=== PATIENT | female | born 1975 | race Caucasian/White ===

== ENCOUNTER → 2018-01-02 | Outpatient (CLI) | payer OTHER ==
[~2018-01-02] MED LIST: HYDR-971 PO; LIDOCAINE 1% PF 30 ML VIAL. ONE
[2018-01-02 11:01] LABS: CSF PROTEIN 30.4 mg/dL (15.0-45.0)
[2018-01-02 11:34] LABS: CSF CLARITY CLEAR; CSF COLOR COLORLESS; CSF RBC COUNT 29; CSF WBC COUNT 0
== END | disposition home or self-care (01) ==
LOC: SURG 08:53
PROVIDERS: ATTEND Anesthesiology Pain Medicine
DX: G43.909 Migraine, unspecified, not intractable, without status migrainosus (principal); F17.210 Nicotine dependence, cigarettes, uncomplicated; Z79.899 Other long term (current) drug therapy; Z72.89 Other problems related to lifestyle; G93.2 Benign intracranial hypertension; E66.9 Obesity, unspecified
CPT/HCPCS: 62270; 77003; 82945; 84157; 89051; J2001

== ENCOUNTER 2018-01-05 08:35 | Emergency (ER) | payer OTHER ==
[~2018-01-05] VITALS: Ht 162.6 cm; Wt 115.6 kg
[2018-01-05] MEDS ORDERED: IV NORMAL SALINE 1,000ML 1,000 ML IV SCH (09:10)
[2018-01-05 09:44] LABS: BASO % 1 % (0-3); EOS # 0.1 x10^3/uL (0.0-0.7); EOS % 1 % (0-3); HEMATOCRIT 44.1 % (36.0-47.0); HEMOGLOBIN 15.3 g/dL (12.0-15.5); LYMPH # 1.5 x10^3/uL (1.0-4.8); LYMPH % 22 % (24-48); MEAN CORPUSCULAR HEMOGLOBIN 32 pg (25-35); MEAN CORPUSCULAR HGB CONC 35 g/dL (31-37); MEAN CORPUSCULAR VOLUME 91 fL (79-100); MONO # 0.4 x10^3/uL (0.0-1.1); MONO % 7 % (0-9); NEUT # 4.5 x10^3uL (1.8-7.7); NEUT % 69 % (31-73); PLATELET COUNT 239 x10^3/uL (140-400); RED BLOOD COUNT 4.84 x10^6/uL (3.50-5.40); RED CELL DISTRIBUTION WIDTH 13.1 % (11.5-14.5); WHITE BLOOD COUNT 6.5 x10^3/uL (4.0-11.0)
[2018-01-05] MEDS ORDERED: ONDANSETRON PF 4 MG/2 ML VIAL. IV ONE (09:45)
[2018-01-05] MEDS ORDERED: KETOROLAC 30 MG/ML VIAL. IV ONE (09:45)
[2018-01-05 09:55] LABS: ALBUMIN 3.6 g/dL (3.4-5.0); ALBUMIN/GLOBULIN RATIO 0.9 (1.0-1.7); CALCIUM 9.2 mg/dL (8.5-10.1); CREATININE 1.1 mg/dL (0.6-1.0); GFR 54.2; POTASSIUM 3.9 mmol/L (3.5-5.1); TOTAL BILIRUBIN 0.3 mg/dL (0.2-1.0); TOTAL PROTEIN 7.5 g/dL (6.4-8.2)
--- NOTE | 2018-01-05 10:22 | RAD ---
CT HEAD WO CONTRAST dated 01/05/2018 10:00 AM Indication:..PAIN INJECTION SPINAL TAP THREE DAYS AGO. CONTINUED PAIN IN HEAD AND HEADACHE. Comparison: No comparison is available. Technique: Contiguous axial imaging the head was performed from skull base to vertex. One or more of the following individualized dose reduction techniques were utilized for this examination: 1. Automated exposure control 2. Adjustment of the mA and/or kV according to patient size 3. Use of iterative reconstruction technique Findings: Ventricles and sulci are within normal limits for age. No midline shift or mass effect. Brain parenchyma is of normal attenuation. No hemorrhage or extra-axial collection. Posterior fossa and brainstem unremarkable. Visualized paranasal sinuses and mastoid air cells are clear. No apparent calvarial abnormality. IMPRESSION: No evidence of acute intracranial abnormality. Electronically signed by: Wyatt Chacon MD (01/05/2018 10:19 AM) [id number]
[2018-01-05] MEDS ORDERED: IV NORMAL SALINE 1,000ML 1,000 ML IV ONE (10:30)
[2018-01-05] MEDS ORDERED: HYDR-971 PO (10:31)
--- NOTE | 2018-01-05 10:31 | PHYS DOC ---
Adult General Chief Complaint Chief Complaint: HEADACHE HPI HPI Patient is a 42 year old female who presents with complaining of headache. Patient states she had a spinal tap 4 days ago related to pseudotumor cerebri and since then has had global headache that is worse in occipital area and getting worse with standing position and movement of her head areas patient complaining of nausea without vomiting and denies fever and chills, focal neuro deficit, neck pain, chest pain or shortness of breath. Patient rated her pain 8/ 10. Review of Systems Review of Systems Constitutional: Denies fever or chills [] Eyes: Denies change in visual acuity, redness, or eye pain [] HENT: Denies nasal congestion or sore throat [] Respiratory: Denies cough or shortness of breath [] Cardiovascular: No additional information not addressed in HPI [] GI: Denies abdominal pain, nausea, vomiting, bloody stools or diarrhea [] : Denies dysuria or hematuria [] Musculoskeletal: Denies back pain or joint pain [] Integument: Denies rash or skin lesions [] Neurologic: Ports headache, denies focal weakness or sensory changes [] Endocrine: Denies polyuria or polydipsia [] All other systems were reviewed and found to be within normal limits, except as documented in this note. Current Medications Current Medications Current Medications Medications (Trade) Dose Ordered Sig/Maximilian Start Time Stop Time Status Last Admin Dose Admin Ketorolac Tromethamine (Toradol 30mg Vial) 30 mg 1X ONCE 01/05/18 09:45 01/05/18 09:46 DC 01/05/18 09:33 30 MG Ondansetron HCl (Zofran) 4 mg 1X ONCE 01/05/18 09:45 01/05/18 09:46 DC 01/05/18 09:33 4 MG Sodium Chloride 1,000 ml @ 1,000 mls/hr Q1H 01/05/18 09:10 01/05/18 10:09 DC 01/05/18 09:33 1,000 MLS/HR Allergies Allergies Allergies Coded Allergies Type Severity Reaction Last Updated Verified No Known Drug Allergies 01/05/18 No Physical Exam Physical Exam Constitutional: Well developed, well nourished, mild distress, non-toxic appearance. [] HENT: Normocephalic, atraumatic, bilateral external ears normal, oropharynx moist, no oral exudates, nose normal. [] Eyes: PERRLA, EOMI, conjunctiva normal, no discharge. [] Neck: Normal range of motion, no tenderness, supple, no stridor, no meningeal sign. [] Cardiovascular:Heart rate regular rhythm, no murmur [] Lungs & Thorax: Bilateral breath sounds clear to auscultation [] Abdomen: Bowel sounds normal, soft, no tenderness, no masses, no pulsatile masses. [] Skin: Warm, dry, no erythema, no rash. [] Back: No tenderness, no CVA tenderness. [] Extremities: No tenderness, no cyanosis, no clubbing, ROM intact, no edema. [] Neurologic: Alert and oriented X 3, normal motor function, normal sensory function, no focal deficits noted. [] Psychologic: Affect normal, judgement normal, mood normal. [] Current Patient Data Lab Results Laboratory Tests Test 01/05/18 09:30 White Blood Count 6.5 x10^3/uL (4.0-11.0) Red Blood Count 4.84 x10^6/uL (3.50-5.40) Hemoglobin 15.3 g/dL (12.0-15.5) Hematocrit 44.1 % (36.0-47.0) Mean Corpuscular Volume 91 fL (79-100) Mean Corpuscular Hemoglobin 32 pg (25-35) Mean Corpuscular Hemoglobin Concent 35 g/dL (31-37) Red Cell Distribution Width 13.1 % (11.5-14.5) Platelet Count 239 x10^3/uL (140-400) Neutrophils (%) (Auto) 69 % (31-73) Lymphocytes (%) (Auto) 22 % (24-48) L Monocytes (%) (Auto) 7 % (0-9) Eosinophils (%) (Auto) 1 % (0-3) Basophils (%) (Auto) 1 % (0-3) Neutrophils # (Auto) 4.5 x10^3uL (1.8-7.7) Lymphocytes # (Auto) 1.5 x10^3/uL (1.0-4.8) Monocytes # (Auto) 0.4 x10^3/uL (0.0-1.1) Eosinophils # (Auto) 0.1 x10^3/uL (0.0-0.7) Basophils # (Auto) 0.0 x10^3/uL (0.0-0.2) Sodium Level 140 mmol/L (136-145) Potassium Level 3.9 mmol/L (3.5-5.1) Chloride Level 104 mmol/L (98-107) Carbon Dioxide Level 28 mmol/L (21-32) Anion Gap 8 (6-14) Blood Urea Nitrogen 12 mg/dL (7-20) Creatinine 1.1 mg/dL (0.6-1.0) H Estimated GFR (Cockcroft-Gault) 54.2 BUN/Creatinine Ratio 11 (6-20) Glucose Level 97 mg/dL (70-99) Calcium Level 9.2 mg/dL (8.5-10.1) Total Bilirubin 0.3 mg/dL (0.2-1.0) Aspartate Amino Transferase (AST) 25 U/L (15-37) Alanine Aminotransferase (ALT) 33 U/L (14-59) Alkaline Phosphatase 73 U/L (46-116) Total Protein 7.5 g/dL (6.4-8.2) Albumin 3.6 g/dL (3.4-5.0) Albumin/Globulin Ratio 0.9 (1.0-1.7) L EKG EKG [] Radiology/Procedures Radiology/Procedures [][place] [address] IMAGING REPORT Signed PATIENT: DEON CAMPBELL ACCOUNT: [id number] : 1975 LOCATION: ER AGE: 42 SEX: F EXAM STATUS: REG ER ORD. PHYSICIAN: DEVONTE SIDDIQUI MD REASON: headache after spinal tap PROCEDURE: CT HEAD WO CONTRAST CT HEAD WO CONTRAST dated 01/05/2018 10:00 AM Indication:..PAIN INJECTION SPINAL TAP THREE DAYS AGO. CONTINUED PAIN IN HEAD AND HEADACHE. Comparison: No comparison is available. Technique: Contiguous axial imaging the head was performed from skull base to vertex. One or more of the following individualized dose reduction techniques were utilized for this examination: 1. Automated exposure control 2. Adjustment of the mA and/or kV according to patient size 3. Use of iterative reconstruction technique Findings: Ventricles and sulci are within normal limits for age. No midline shift or mass effect. Brain parenchyma is of normal attenuation. No hemorrhage or extra-axial collection. Posterior fossa and brainstem unremarkable. Visualized paranasal sinuses and mastoid air cells are clear. No apparent calvarial abnormality. IMPRESSION: No evidence of acute intracranial abnormality. Electronically signed by: Wyatt Chacon MD (01/05/2018 10:19 AM) [id number] DICTATED AND SIGNED BY: WYATT CHACON MD DATE: 01/05/18 1018 CC: PAT CHOW; DEVONTE SIDDIQUI MD ~ Course & Med Decision Making Course & Med Decision Making Pertinent Labs and Imaging studies reviewed. (See chart for details) Evolution of patient in ER showed 42-year-old female patient with complaining of headache after spinal tap 4 days ago. Patient did not have meningeal sign or fever and labs and CT of head was unremarkable. Patient treated with 2 L of normal saline and Toradol and Zofran and felt better. Patient instructed to get supine position and follow with her pain management if continued to have headache. Dragon Disclaimer Dragon Disclaimer This electronic medical record was generated, in whole or in part, using a voice recognition dictation system. Departure Departure: Impression: Primary Impression: Spinal puncture headache Disposition: HOME, SELF-CARE (at 10:30) Condition: IMPROVED Referrals: PAT CHOW (PCP) Patient Instructions: Spinal Headache Additional Instructions: Drink plenty of liquids Follow-up with your primary care physician in 3-5 days Return to ER if not getting better Scripts Hydrocodone Bit/Acetaminophen (NORCO 5-325 TABLET) 1 Each Tablet 1 TAB PO PRN Q6HRS PRN for PAIN, #14 TAB 0 Refills Prov: DEVONTE SIDDIQUI MD 01/05/18 DEVONTE SIDDIQUI MD Jan 05, 2018 10:31
[2018-01-05 11:30] VITALS: BP 151/96
== END 2018-01-05 11:30 | disposition home or self-care (01) ==
LOC: ER 08:35
DX: G97.1 Other reaction to spinal and lumbar puncture (principal); Y84.4 Aspiration of fluid as the cause of abnormal reaction of the patient, or of later complication, without mention of misadventure at the time of the procedure; Y92.89 Other specified places as the place of occurrence of the external cause
CPT/HCPCS: 36415; 70450; 80053; 85025; 96374; 96375; 99285; J1885; J2405; J7030

== ENCOUNTER 2018-05-23 09:03 | Emergency (ER) | payer OTHER ==
[~2018-05-23] VITALS: Ht 162.6 cm; Wt 115.6 kg
[~2018-05-23 09:03] MED LIST changes: +HYDR-3165 PO; -HYDR-971 PO; -LIDOCAINE 1% PF 30 ML VIAL. ONE
[2018-05-23 09:13] VITALS: BP 163/95
[2018-05-23] MEDS ORDERED: IV NORMAL SALINE 1,000ML 1,000 ML IV SCH (09:44)
--- NOTE | 2018-05-23 09:52 | PHYS DOC ---
Past History Past Medical History: Hypertension, Pancreatitis, Other Past Surgical History: Cholecystectomy, Hysterectomy, Tonsillectomy, Tubal ligation Alcohol Use: Occasionally Drug Use: None Adult General Chief Complaint Chief Complaint: FLU SYMPTOM HPI HPI Patient is a 42 year old female who presents with cough, body aches, right- sided abdominal pain. This started 3 days ago. Patient was seen at urgent care clinically diagnosed with the flu, however her flu swab was negative. Also provisionally told that she had mononucleosis however the wrong version of the test was performed which actually indicated that she had been exposed to it previously. Patient notes that she's had nasal congestion, worsening cough with laying on her back or her side. Cough is nonproductive. No fever. Patient has history of cholecystectomy but is having right-sided abdominal pain. Coughing and movement make the abdominal pain worse. There is been no nausea vomiting or diarrhea. Nothing seems to make the discomfort of the cough better or worse. Patient is not receiving any relief with codeine cough syrup. [] Review of Systems Review of Systems Constitutional: Denies fever or chills [] Eyes: Denies change in visual acuity, redness, or eye pain [] HENT: Denies nasal congestion or sore throat [] Respiratory: See history of present illness[] Cardiovascular: No additional information not addressed in HPI [] GI: See history of present illness[] : Denies dysuria or hematuria [] Musculoskeletal: Denies back pain or joint pain [] Integument: Denies rash or skin lesions [] Neurologic: Denies headache, focal weakness or sensory changes [] Endocrine: Denies polyuria or polydipsia [] All other systems were reviewed and found to be within normal limits, except as documented in this note. Allergies Allergies Allergies Coded Allergies Type Severity Reaction Last Updated Verified No Known Drug Allergies 01/05/18 No Physical Exam Physical Exam Constitutional: Well developed, well nourished, no acute distress, non-toxic appearance. [] HENT: Normocephalic, atraumatic, bilateral external ears normal, oropharynx moist, no oral exudates, posterior pharyngeal streaking is present, nose has clear rhinorrhea. [] Eyes: PERRLA, EOMI, conjunctiva normal, no discharge. [] Neck: Normal range of motion, no tenderness, supple, no stridor. [] Cardiovascular:Heart rate regular rhythm, no murmur [] Lungs & Thorax: Bilateral breath sounds clear to auscultation [] Abdomen: Bowel sounds normal, soft, right upper quadrant tenderness, no rebound , no guarding, no rigidity, no masses, no pulsatile masses. [] Skin: Warm, dry, no erythema, no rash. [] Back: No tenderness, no CVA tenderness. [] Extremities: No tenderness, no cyanosis, no clubbing, ROM intact, no edema. [] Neurologic: Alert and oriented X 3, normal motor function, normal sensory function, no focal deficits noted. [] Psychologic: Affect normal, judgement normal, mood normal. [] Current Patient Data Vital Signs Vital Signs Date Time Temp Pulse Resp B/P (MAP) Pulse Ox O2 Delivery O2 Flow Rate FiO2 05/23/18 09:13 98.3 100 20 96 Room Air EKG EKG [] Radiology/Procedures Radiology/Procedures CT ABDOMEN PELVIS WO CONTRAST Clinical Indication: right side abd pain x 1 day, flu like symptoms x 3 days, Comparison: None. Technique: Helical CT imaging of the abdomen and pelvis is performed without IV or oral contrast. Findings: Evaluation of solid organs and bowel is limited without oral and IV contrast, decreasing sensitivity for detection of pathology. Calcified granuloma right lower lobe. Lung bases otherwise clear. Cardiac size normal. There is mild fatty infiltration of the liver. Cholecystectomy. Spleen size upper limits of normal. Pancreas is homogeneous. Adrenal glands and abdominal aorta are normal. There is cortical scarring of the bilateral kidneys. There is no hydronephrosis. Stomach unremarkable. Tiny fat-containing umbilical hernia. Distal colon diverticulosis. The appendix is normal. There is no colon wall thickening. No abdominal adenopathy or free fluid. Urinary bladder is not well distended accentuating wall thickness. Hysterectomy. There is air in the vagina. No pelvic free fluid. No acute bone abnormality. IMPRESSION: 1. No acute abdominal or pelvic abnormality. 2. Mild fatty infiltration of the liver. 3. Cortical scarring of the bilateral kidneys. 4. Distal colon diverticulosis without diverticulitis. PORTABLE CHEST 1V Clinical Indication: cough x 3 days Comparison: None. Findings: The cardiomediastinal silhouette is normal. There are bilateral perihilar airspace opacities. Lungs are otherwise clear. There is no pneumothorax. No pleural effusion is appreciated. No acute bone abnormality. IMPRESSION: Bilateral perihilar airspace disease.[] Course & Med Decision Making Course & Med Decision Making Pertinent Labs and Imaging studies reviewed. (See chart for details) ED course: Patient arrived, was placed in bed, in tolerated exam well. Patient was transported to and from CT with any complications. After return of lab and CT findings, these were discussed with the patient who voiced understanding. All questions were answered. Medical decision making: Patient with bilateral perihilar airspace disease, afebrile and normal oxygen saturation, will cover her for possibility of bacterial infection given this finding. There is no evidence significant neurologic abnormality. No evidence of purulent tolerance. Believe the cough is witnessed triggering her abdominal pain, no evidence of pancreatitis nor appendicitis.[] Dragon Disclaimer Dragon Disclaimer This electronic medical record was generated, in whole or in part, using a voice recognition dictation system. Departure Departure: Impression: Primary Impression: Cough Additional Impression: Abdominal pain Disposition: HOME, SELF-CARE Condition: GOOD Referrals: PAT CHOW (PCP) Follow up in 2 days Patient Instructions: Abdominal Pain (Nonspecific), Cough, Adult Additional Instructions: Drink plenty of fluids. Follow-up with your regular doctor in 2 days. Return to the ER if worsening cough, worsening pain, or any other concerns. Scripts D-Methorphan Hb/Prometh Hcl (PROMETHAZINE-DM SYRUP) 118 Ml Syrup 5 ML PO PRN Q4HRS for CONGESTION, #120 ML Prov: VISHAL GR DO 05/23/18 Hyoscyamine Sulfate (LEVSIN) 0.125 Mg Tablet 0.125 MG PO QID for abdominal pain/cramping, #30 TAB Prov: VISHAL GR DO 05/23/18 Doxycycline Hyclate (DOXYCYCLINE HYCLATE) 100 Mg Tablet 1 TAB PO BID for cough, #20 TAB Prov: VISHAL GR DO 05/23/18 Problem Qualifiers Additional Impression: Abdominal pain Abdominal location: unspecified location Qualified Codes: R10.9 - Unspecified abdominal pain VISHAL GR DO May 23, 2018 09:51
[2018-05-23] MEDS ORDERED: KETOROLAC 30 MG/ML VIAL. IV ONE (10:30)
--- NOTE | 2018-05-23 10:36 | RAD ---
PQRS Compliance Statement: One or more of the following individualized dose reduction techniques were utilized for this examination: 1. Automated exposure control 2. Adjustment of the mA and/or kV according to patient size 3. Use of iterative reconstruction technique CT ABDOMEN PELVIS WO CONTRAST Clinical Indication: right side abd pain x 1 day, flu like symptoms x 3 days, Comparison: None. Technique: Helical CT imaging of the abdomen and pelvis is performed without IV or oral contrast. Findings: Evaluation of solid organs and bowel is limited without oral and IV contrast, decreasing sensitivity for detection of pathology. Calcified granuloma right lower lobe. Lung bases otherwise clear. Cardiac size normal. There is mild fatty infiltration of the liver. Cholecystectomy. Spleen size upper limits of normal. Pancreas is homogeneous. Adrenal glands and abdominal aorta are normal. There is cortical scarring of the bilateral kidneys. There is no hydronephrosis. Stomach unremarkable. Tiny fat-containing umbilical hernia. Distal colon diverticulosis. The appendix is normal. There is no colon wall thickening. No abdominal adenopathy or free fluid. Urinary bladder is not well distended accentuating wall thickness. Hysterectomy. There is air in the vagina. No pelvic free fluid. No acute bone abnormality. IMPRESSION: 1. No acute abdominal or pelvic abnormality. 2. Mild fatty infiltration of the liver. 3. Cortical scarring of the bilateral kidneys. 4. Distal colon diverticulosis without diverticulitis. Electronically signed by: Major Andrew MD (05/23/2018 10:32 AM) [facility]
[2018-05-23 10:38] LABS: BASO % 0 % (0-3); EOS # 0.1 x10^3/uL (0.0-0.7); EOS % 1 % (0-3); HEMATOCRIT 48.3 % (36.0-47.0); HEMOGLOBIN 16.4 g/dL (12.0-15.5); LYMPH # 0.9 x10^3/uL (1.0-4.8); LYMPH % 13 % (24-48); MEAN CORPUSCULAR HEMOGLOBIN 31 pg (25-35); MEAN CORPUSCULAR HGB CONC 34 g/dL (31-37); MEAN CORPUSCULAR VOLUME 91 fL (79-100); MONO # 0.5 x10^3/uL (0.0-1.1); MONO % 7 % (0-9); NEUT # 5.8 x10^3uL (1.8-7.7); NEUT % 80 % (31-73); PLATELET COUNT 218 x10^3/uL (140-400); RED BLOOD COUNT 5.31 x10^6/uL (3.50-5.40); RED CELL DISTRIBUTION WIDTH 13.3 % (11.5-14.5); WHITE BLOOD COUNT 7.3 x10^3/uL (4.0-11.0)
--- NOTE | 2018-05-23 10:42 | RAD ---
PORTABLE CHEST 1V Clinical Indication: cough x 3 days Comparison: None. Findings: The cardiomediastinal silhouette is normal. There are bilateral perihilar airspace opacities. Lungs are otherwise clear. There is no pneumothorax. No pleural effusion is appreciated. No acute bone abnormality. IMPRESSION: Bilateral perihilar airspace disease. Electronically signed by: Major Andrew MD (05/23/2018 10:37 AM) [facility]
[2018-05-23 10:46] LABS: BACTERIA,URINE 0 /HPF (0-FEW); BILIRUBIN,URINE NEG (NEG); CLARITY,URINE CLEAR; COLOR,URINE YELLOW; GLUCOSE,URINE NEG (NEG); NITRITE,URINE NEG (NEG); SQUAMOUS EPITHELIAL CELL,UR FEW /LPF; UROBILINOGEN,URINE 0.2 mg/dL (0.2 mg/dL); WBC,URINE 0 /HPF (0-4)
[2018-05-23 10:47] LABS: ALBUMIN 3.8 g/dL (3.4-5.0); ALBUMIN/GLOBULIN RATIO 0.9 (1.0-1.7); CALCIUM 8.8 mg/dL (8.5-10.1); GFR 60.5; POTASSIUM 3.8 mmol/L (3.5-5.1); TOTAL BILIRUBIN 0.2 mg/dL (0.2-1.0); TOTAL PROTEIN 7.9 g/dL (6.4-8.2)
[2018-05-23] MEDS ORDERED: D-ME118S2 PO (11:05)
[2018-05-23] MEDS ORDERED: DOXY100T PO (11:05)
[2018-05-23] MEDS ORDERED: HYOS0.1264 PO (11:05)
== END 2018-05-23 11:00 | disposition home or self-care (01) ==
LOC: ER 09:03
DX: R10.11 Right upper quadrant pain (principal); R05 Cough; K76.0 Fatty (change of) liver, not elsewhere classified; K57.30 Diverticulosis of large intestine without perforation or abscess without bleeding; I10 Essential (primary) hypertension; Z90.49 Acquired absence of other specified parts of digestive tract; Z90.89 Acquired absence of other organs; Z98.51 Tubal ligation status
CPT/HCPCS: 36415; 71045; 74176; 80053; 81001; 83690; 85025; 96374; 99284; J1885; J7030

== ENCOUNTER 2018-12-14 06:04 | Emergency (ER) | payer OTHER ==
[~2018-12-14] VITALS: Ht 315 cm; Wt 124.2 kg
[~2018-12-14 06:04] MED LIST changes: +DOXY100T PO; +HYOS0.1264 PO; +PROM118S9 PO
[2018-12-14] MEDS ORDERED: micardis (06:25)
[2018-12-14] MEDS ORDERED: diamox (06:25)
[2018-12-14] MEDS ORDERED: MELO7.5T29 PO (06:37)
[2018-12-14] MEDS ORDERED: ORPH-16 PO (06:37)
--- NOTE | 2018-12-14 06:37 | PHYS DOC ---
Past History Past Medical History: Hypertension, Pancreatitis, Other Additional Past Medical Histor: pseudotumor cerebri Past Surgical History: Cholecystectomy, Hysterectomy, Tonsillectomy, Tubal ligation Smoking: Cigarettes, Less than 1pk/day Alcohol Use: Occasionally Drug Use: None Adult General Chief Complaint Chief Complaint: Neck Pain HPI HPI Patient is a 43-year-old female presents complaining of right shoulder, back, and neck pain. This started yesterday. Increased pain with movement. No trauma. No weakness or paresthesias. Patient had similar symptoms to a lesser degree approximately a week ago after cleaning out her garage. She is right-hand dominant. No worsening with exertion. No shortness of breath. No fever. No history of IV or injectable drug use/ abuse. No recent weight changes. No personal history of cancer. No significant relief with ibuprofen or acetaminophen. Pain is moderate in intensity[] Review of Systems Review of Systems Constitutional: Denies fever or chills [] Eyes: Denies change in visual acuity, redness, or eye pain [] HENT: Denies nasal congestion or sore throat [] Respiratory: Denies cough or shortness of breath [] Cardiovascular: No chest pain, palpitations, or dyspnea on exertion[] GI: Denies abdominal pain, nausea, vomiting, bloody stools or diarrhea [] : Denies dysuria or hematuria [] Musculoskeletal: See history of present illness[] Integument: Denies rash or skin lesions [] Neurologic: Denies headache, focal weakness or sensory changes [] Endocrine: Denies polyuria or polydipsia [] All other systems were reviewed and found to be within normal limits, except as documented in this note. Allergies Allergies Allergies Coded Allergies Type Severity Reaction Last Updated Verified No Known Drug Allergies 12/14/18 No Physical Exam Physical Exam Constitutional: Well developed, well nourished, no acute distress, non-toxic appearance. [] HENT: Normocephalic, atraumatic, bilateral external ears normal, oropharynx moist, no oral exudates, nose normal. [] Eyes: PERRLA, EOMI, conjunctiva normal, no discharge. [] Neck: Normal range of motion, tenderness of the right-sided cervical paraspinal musculature, supple, no stridor. [] Cardiovascular:Heart rate regular rhythm, no murmur [] Lungs & Thorax: Bilateral breath sounds clear to auscultation [] Abdomen: Bowel sounds normal, soft, no tenderness, no masses, no pulsatile masses. [] Skin: Warm, dry, no erythema, no rash. [] Back: Tenderness along the right sided upper thoracic paraspinal musculature. No crepitus. Spasm is present in the musculature. No subcutaneous emphysema. no CVA tenderness. [] Extremities: Right shoulder has tenderness to palpation along the trapezius. No bony tenderness to palpation. No pain with axial loading. No clavicular tenderness to palpation. She has full active range of motion in the shoulder. She is distally neurovascularly intact. The other 3 extremities show: No tenderness, no cyanosis, no clubbing, ROM intact, no edema. [] Neurologic: Alert and oriented X 3, normal motor function, normal sensory function, no focal deficits noted. [] Psychologic: Affect normal, judgement normal, mood normal. [] EKG EKG [] Radiology/Procedures Radiology/Procedures [] Course & Med Decision Making Course & Med Decision Making Pertinent Labs and Imaging studies reviewed. (See chart for details) Medical decision making: This appears to be muscle strain mechanism. There is no evidence of pneumonia, fracture, dislocation, or neurologic or vascular compromise. No evidence of cauda equina syndrome. ED course: Patient arrived, was placed in bed, and tolerated exam well. Discussed findings and plan with patient who voiced understanding. All questions were answered. She was discharged in improved condition.[] Dragon Disclaimer Dragon Disclaimer This electronic medical record was generated, in whole or in part, using a voice recognition dictation system. Departure Departure: Impression: Primary Impression: Muscle strain Disposition: 01 HOME, SELF-CARE Condition: IMPROVED Referrals: PAT CHOW (PCP) Follow-up in 2 days Patient Instructions: Muscle Strain Additional Instructions: Follow-up with your regular doctor in 2 days. Apply warm compresses for 15 minutes at a time, at least 4 times a day. Return to the ER if worsening pain, weakness, or any other concerns. Scripts Orphenadrine Citrate (ORPHENADRINE CITRATE) 100 Mg Tablet.er 100 MG PO BID for BACK PAIN, #20 TAB.SR Prov: VISHAL GR DO 12/14/18 Meloxicam (MELOXICAM) 7.5 Mg Tablet 7.5 MG PO DAILY for PAIN, #20 TAB Prov: VISHAL GR DO 12/14/18 VISHAL GR DO Dec 14, 2018 06:37
[2018-12-14 06:54] VITALS: BP 119/79
[2018-12-14] MEDS ORDERED: NAPROXEN 500 MG TABLET PO ONE (07:00)
== END 2018-12-14 06:54 | disposition home or self-care (01) ==
LOC: ER 06:04
DX: S46.911A Strain of unspecified muscle, fascia and tendon at shoulder and upper arm level, right arm, initial encounter (principal); S16.1XXA Strain of muscle, fascia and tendon at neck level, initial encounter; S29.012A Strain of muscle and tendon of back wall of thorax, initial encounter; I10 Essential (primary) hypertension; F17.210 Nicotine dependence, cigarettes, uncomplicated; Z90.49 Acquired absence of other specified parts of digestive tract; Z90.710 Acquired absence of both cervix and uterus; Z98.51 Tubal ligation status; X50.9XXA Other and unspecified overexertion or strenuous movements or postures, initial encounter; Y93.89 Activity, other specified; Y92.89 Other specified places as the place of occurrence of the external cause; Y99.8 Other external cause status
CPT/HCPCS: 99283

== ENCOUNTER 2019-05-24 07:49 | Emergency (ER) | payer OTHER ==
[~2019-05-24 07:49] MED LIST changes: +MELO7.5T29 PO; +ORPH-16 PO; +diamox; +micardis
[2019-05-24 07:59] VITALS: BP 159/97
--- NOTE | 2019-05-24 08:19 | RAD ---
CHEST PA LATERAL History: Fever. Cough. Chest congestion Comparison: May 23, 2018 Findings: No consolidation or pleural effusion. Normal heart size. No pneumothorax. Impression: 1. No acute cardiopulmonary process. Electronically signed by: Luis Elliott DO (05/24/2019 8:16 AM) [id number]
--- NOTE | 2019-05-24 08:27 | PHYS DOC ---
Past History Past Medical History: Hypertension Additional Past Medical Histor: pseudotumor cerebri Past Surgical History: Cholecystectomy, Hysterectomy, Tonsillectomy, Tubal lig ation, Other Additional Past Surgical Histo: uvula removed Smoking: Cigarettes, Less than 1pk/day Alcohol Use: Occasionally Drug Use: None Adult General Chief Complaint Chief Complaint: MULTIPLE COMPLAINTS HPI HPI 43-year-old female presents with cough, congestion, and sore throat for the last several days. She has had a low-grade fever up to 100. She feels like she is getting worse and wanted to be evaluated. She has been feeling like there is a bubble popping sensation in her throat that she can both feel and hear. She has been coughing frequently and has some generalized abdominal cramps due to the coughing. She also complains of increased urinary frequency and wants to make sure she doesn't have a UTI. She has no other complaints at this time. Review of Systems Review of Systems Constitutional: The volar[] Eyes: Denies change in visual acuity, redness, or eye pain [] HENT: Nasal congestion and sore throat [] Respiratory: Cough without shortness of breath [] Cardiovascular: No additional information not addressed in HPI [] GI: Denies nausea, vomiting, bloody stools or diarrhea [] : Increased urinary frequency [] Musculoskeletal: Denies back pain or joint pain [] Integument: Denies rash or skin lesions [] Neurologic: Denies headache, focal weakness or sensory changes [] Endocrine: Denies polyuria or polydipsia [] All other systems were reviewed and found to be within normal limits, except as documented in this note. Allergies Allergies Allergies Coded Allergies Type Severity Reaction Last Updated Verified No Known Drug Allergies 12/14/18 No Physical Exam Physical Exam Constitutional: Well developed, obese, well nourished, no acute distress, non- toxic appearance. [] HENT: Normocephalic, atraumatic, bilateral external ears normal, oropharynx moist, no oral exudates, nose congested. Bilateral tympanic membranes normal.[] Eyes: PERRLA, EOMI, conjunctiva normal, no discharge. [] Neck: Mild bilateral anterior cervical lymphadenopathy Normal range of motion, no tenderness, supple, no stridor. [] Cardiovascular: Heart rate regular rhythm, no murmur [] Lungs & Thorax: Bilateral breath sounds clear to auscultation [] Abdomen: Bowel sounds normal, soft, no tenderness, no masses, no pulsatile masses. [] Skin: Warm, dry, no erythema, no rash. [] Back: No tenderness, no CVA tenderness. [] Extremities: No tenderness, no cyanosis, no clubbing, ROM intact, no edema. [] Neurologic: Alert and oriented X 3, normal motor function, normal sensory function, no focal deficits noted. [] Psychologic: Affect normal, judgement normal, mood normal. [] Current Patient Data Vital Signs Vital Signs Date Time Temp Pulse Resp B/P (MAP) Pulse Ox O2 Delivery O2 Flow Rate FiO2 05/24/19 07:59 98.0 94 18 96 Room Air EKG EKG [] Radiology/Procedures Radiology/Procedures [] Impressions: CHEST PA LATERAL History: Fever. Cough. Chest congestion Comparison: May 23, 2018 Findings: No consolidation or pleural effusion. Normal heart size. No pneumothorax. Impression: 1. No acute cardiopulmonary process. Electronically signed by: Michael Hughes DO (05/24/2019 8:16 AM) [id number] DICTATED AND SIGNED BY: MICHAEL HUGHES DO DATE: 05/24/19 0816 CC: KARLA CHRISTOPHER DO; PAT CHOW ~ Course & Med Decision Making Course & Med Decision Making Pertinent Labs and Imaging studies reviewed. (See chart for details) The patient's strep is negative. Her chest x-rays negative for acute findings. She has refused the influenza test because it's been too long to use Tamiflu anyway and she doesn't care to have it confirmed. The patient's labs are unremarkable. I believe she has a viral URI with cough. I don't have an explanation for the crackling sensation in her throat. It could be due to inflammation and/or fluid in her inner ear. She is stable for discharge at this time. [] Dragon Disclaimer Dragon Disclaimer This electronic medical record was generated, in whole or in part, using a voice recognition dictation system. Departure Departure: Impression: Primary Impression: Viral URI with cough Additional Impression: Viral pharyngitis Disposition: HOME, SELF-CARE Condition: STABLE Referrals: PAT CHOW (PCP) Patient Instructions: Upper Respiratory Infection, Adult, [id number], Viral and Bacterial Pharyngitis, [id number] Problem Qualifiers KARLA CHRISTOPHER DO May 24, 2019 08:27
[2019-05-24 08:29] LABS: BASO % 1 % (0-3); EOS # 0.1 x10^3/uL (0.0-0.7); EOS % 4 % (0-3); HEMATOCRIT 45.7 % (36.0-47.0); HEMOGLOBIN 15.3 g/dL (12.0-15.5); LYMPH % 30 % (24-48); MEAN CORPUSCULAR HEMOGLOBIN 30 pg (25-35); MEAN CORPUSCULAR HGB CONC 33 g/dL (31-37); MEAN CORPUSCULAR VOLUME 90 fL (79-100); MONO # 0.4 x10^3/uL (0.0-1.1); MONO % 12 % (0-9); NEUT # 1.7 x10^3uL (1.8-7.7); NEUT % 53 % (31-73); PLATELET COUNT 179 x10^3/uL (140-400); RED BLOOD COUNT 5.08 x10^6/uL (3.50-5.40); WHITE BLOOD COUNT 3.2 x10^3/uL (4.0-11.0)
[2019-05-24 08:41] LABS: CALCIUM 8.7 mg/dL (8.5-10.1); CREATININE 1.1 mg/dL (0.6-1.0); POTASSIUM 4.2 mmol/L (3.5-5.1)
[2019-05-24 08:47] LABS: ALBUMIN 3.7 g/dL (3.4-5.0); TOTAL BILIRUBIN 0.3 mg/dL (0.2-1.0); TOTAL PROTEIN 7.4 g/dL (6.4-8.2)
[2019-05-24 09:11] LABS: BILIRUBIN,URINE NEG (NEG); CLARITY,URINE CLEAR; COLOR,URINE YELLOW; GLUCOSE,URINE NEG (NEG)
[2019-05-24 09:12] LABS: BACTERIA,URINE 0 /HPF (0-FEW); NITRITE,URINE NEG (NEG); SQUAMOUS EPITHELIAL CELL,UR MOD /LPF; UROBILINOGEN,URINE 0.2 mg/dL (0.2 mg/dL)
[2019-05-25] MEDS ORDERED: ONDA4TAB12 PO (18:34)
[2019-05-25] MEDS ORDERED: HYOS0.1265 SL (18:34)
[2019-05-25] MEDS ORDERED: FAMO-63 PO (18:34)
== END 2019-05-24 09:07 | disposition home or self-care (01) ==
LOC: ER 07:49
DX: J02.8 Acute pharyngitis due to other specified organisms (principal); B97.89 Other viral agents as the cause of diseases classified elsewhere; I10 Essential (primary) hypertension; F17.210 Nicotine dependence, cigarettes, uncomplicated; Z90.710 Acquired absence of both cervix and uterus; Z98.51 Tubal ligation status; Z90.49 Acquired absence of other specified parts of digestive tract
CPT/HCPCS: 36415; 71046; 80053; 81001; 85025; 87070; 87880; 99285

== ENCOUNTER 2019-05-25 15:56 | Emergency (ER) | payer OTHER ==
[~2019-05-25] VITALS: Ht 167.6 cm; Wt 117.9 kg
--- NOTE | 2019-05-25 16:25 | PHYS DOC ---
Past History Past Medical History: Hypertension Additional Past Medical Histor: pseudotumor cerebri Past Surgical History: Cholecystectomy, Hysterectomy, Tonsillectomy, Tubal lig ation, Other Additional Past Surgical Histo: uvula removed Smoking: Cigarettes, Less than 1pk/day Alcohol Use: Occasionally Drug Use: None Adult General Chief Complaint Chief Complaint: NAUSEA/VOMITING/DIARRHEA HPI HPI Patient is a 43-year-old male that presents to the ED with a complaint of nausea, weakness, and dizziness. Patient states the symptoms started this morning while arriving at work associated symptoms of sweating, feeling hot, pressure behind eyes. Patient states she's never had these symptoms before. Patient denies chest pain, shortness of breath, abdominal pain, vomiting, diarrh ea. Per review of records patient was seen in ED yesterday for a cough and diagnosed with viral URI. Patient mentions that she feels very dehydrated, also has a diagnosis of pseudotumor cerebri for which she hasn't taken her medication for recently. Review of Systems Review of Systems Constitutional: Denies fever or chills. Ports weakness. Eyes: Denies redness or eye pain, ports pressure behind eyes. HENT: Denies nasal congestion or sore throat Respiratory: Denies cough or shortness of breath Cardiovascular: Denies chest pain or palpitations GI: Denies abdominal pain, or vomiting. Reports nausea : Denies dysuria or hematuria Musculoskeletal: Denies back pain or joint pain Integument: Denies rash or skin lesions Neurologic: Denies headache, focal weakness or sensory changes. Reports dizziness. Complete systems were reviewed and found to be within normal limits, except as documented in this note. Allergies Allergies Allergies Coded Allergies Type Severity Reaction Last Updated Verified No Known Drug Allergies 12/14/18 No Physical Exam Physical Exam Constitutional: Well developed, well nourished, no acute distress, non-toxic appearance HENT: Normocephalic, atraumatic, oropharynx moist Eyes: Conjunctiva normal, no discharge Neck: Normal range of motion, no tenderness, supple Cardiovascular: Heart rate normal, regular rhythm Lungs & Thorax: Bilateral breath sounds clear to auscultation, no wheezing Abdomen: Soft, no tenderness Skin: Warm, dry, no erythema, no rash Back: No tenderness, no CVA tenderness Extremities: No tenderness, ROM intact, no edema Neurologic: Alert and oriented X 3, no focal deficits noted Psychologic: Affect normal, judgment normal EKG EKG [] Radiology/Procedures Radiology/Procedures [] Course & Med Decision Making Course & Med Decision Making Pertinent Lab studies reviewed. (See chart for details) Patient with history of pseudotumor cerebri presents with nausea, weakness, dizziness that started today. Symptomatic treatment provided. IVF hydration given. Patient with interval improvement of symptoms. Labs obtained and posted to chart. Patient stable for discharge home with outpatient follow-up with PCP. Discussed findings and plan with patient, who acknowledges understanding and agreement. Dragon Disclaimer Dragon Disclaimer This electronic medical record was generated, in whole or in part, using a voice recognition dictation system. Departure Departure: Impression: Primary Impression: Nausea & vomiting Disposition: 01 HOME, SELF-CARE Condition: STABLE Referrals: PAT CHOW (PCP) REMIGIO LUONG MD Patient Instructions: Nausea and Vomiting, [id number] Scripts Hyoscyamine Sulfate (LEVSIN-SL) 0.125 Mg Tab.subl 0.125 MG SL Q4-6HRS PRN for PAIN, #14 TAB Prov: OCTAVIA JOSEPH DO 05/25/19 Famotidine (PEPCID) 20 Mg Tablet 1 TAB PO BID for gastritis for 5 Days, #10 TAB Prov: OCTAVIA JOSEPH DO 05/25/19 Ondansetron (ONDANSETRON ODT) 4 Mg Tab.rapdis 1 TAB PO PRN Q6-8HRS PRN for NAUSEA, #16 TAB Prov: OCTAVIA JOSEPH DO 05/25/19 Problem Qualifiers Primary Impression: Nausea & vomiting Vomiting type: unspecified Vomiting Intractability: non-intractable Qualified Codes: R11.2 - Nausea with vomiting, unspecified OCTAVIA JOSEPH DO May 25, 2019 16:25
[2019-05-25] MEDS ORDERED: IV NORMAL SALINE 1,000ML 1,000 ML IV ONE (16:30)
[2019-05-25] MEDS ORDERED: FAMOTIDINE 20 MG/2 ML VIAL IVP ONE (16:45)
[2019-05-25] MEDS ORDERED: ONDANSETRON PF 4 MG/2 ML VIAL. IVP ONE (16:45)
[2019-05-25] MEDS ORDERED: KETOROLAC 15 MG/ML VIAL. IVP ONE (16:45)
[2019-05-25 16:52] LABS: BASO % 1 % (0-3); EOS # 0.1 x10^3/uL (0.0-0.7); EOS % 2 % (0-3); HEMATOCRIT 45.3 % (36.0-47.0); HEMOGLOBIN 15.2 g/dL (12.0-15.5); LYMPH # 1.6 x10^3/uL (1.0-4.8); LYMPH % 52 % (24-48); MEAN CORPUSCULAR HEMOGLOBIN 30 pg (25-35); MEAN CORPUSCULAR HGB CONC 34 g/dL (31-37); MEAN CORPUSCULAR VOLUME 89 fL (79-100); MONO # 0.3 x10^3/uL (0.0-1.1); MONO % 11 % (0-9); NEUT % 33 % (31-73); PLATELET COUNT 189 x10^3/uL (140-400); RED BLOOD COUNT 5.07 x10^6/uL (3.50-5.40); RED CELL DISTRIBUTION WIDTH 13.4 % (11.5-14.5)
[2019-05-25 16:59] LABS: CREATININE 1.2 mg/dL (0.6-1.0); GFR 48.8; POTASSIUM 3.9 mmol/L (3.5-5.1)
[2019-05-25 17:05] LABS: ALBUMIN 3.5 g/dL (3.4-5.0); MAGNESIUM 2.1 mg/dL (1.8-2.4); TOTAL BILIRUBIN 0.2 mg/dL (0.2-1.0); TOTAL PROTEIN 7.1 g/dL (6.4-8.2)
[2019-05-25 18:21] LABS: BILIRUBIN,URINE NEG (NEG); CLARITY,URINE CLEAR; COLOR,URINE YELLOW; GLUCOSE,URINE NEG (NEG)
[2019-05-25 18:22] LABS: BACTERIA,URINE 0 /HPF (0-FEW); NITRITE,URINE NEG (NEG); RBC,URINE 0 /HPF (0-2); SQUAMOUS EPITHELIAL CELL,UR OCC /LPF; UROBILINOGEN,URINE 0.2 mg/dL (0.2 mg/dL)
[2019-05-25] MEDS ORDERED: FAMO-63 PO (18:34)
[2019-05-25] MEDS ORDERED: HYOS0.1265 SL (18:34)
[2019-05-25] MEDS ORDERED: ONDA4TAB12 PO (18:34)
[2019-05-25] MEDS ORDERED: diphenhydrAMINE 50 MG/ML VIAL IVP ONE (18:45)
[2019-05-25] MEDS ORDERED: DEXAMETHASONE SOD PHOS 10 MG/ML VIAL IV ONE (18:45)
[2019-05-25 19:09] VITALS: BP 131/85
== END 2019-05-25 19:14 | disposition home or self-care (01) ==
LOC: ER 15:56
DX: R11.2 Nausea with vomiting, unspecified (principal); R53.1 Weakness; R42 Dizziness and giddiness; I10 Essential (primary) hypertension; F17.210 Nicotine dependence, cigarettes, uncomplicated; Z90.49 Acquired absence of other specified parts of digestive tract; Z90.710 Acquired absence of both cervix and uterus; Z98.51 Tubal ligation status
CPT/HCPCS: 36415; 80053; 81001; 83690; 83735; 85025; 96361; 96374; 96375; 99284; J1100; J1200; J1885; J2405; J3490; J7030